=== PATIENT | female | born 1995 ===

== ENCOUNTER 2018-07-30 15:59 | Outpatient (REF) | payer OTHER, SELFPAY ==
[2018-07-30 21:56] LABS: TSH (W/Ref FT4) 1.11 uIU/mL (0.358-3.74)
== END 2018-07-30 16:19 ==
LOC: NCHCN 15:59
PROVIDERS: PCP Nurse Practitioner Family; Visit Provider Nurse Practitioner Family
DX: F41.9 Anxiety disorder, unspecified (principal); F32.9 Major depressive disorder, single episode, unspecified
CPT/HCPCS: 84443